=== PATIENT | male | born 1970 | race Caucasian/White ===

== ENCOUNTER 2022-08-23 10:51 | Outpatient (AMB) | payer MEDICAID, SELFPAY ==
--- NOTE | 2022-08-23 11:00 | MHC.PC.OV ---
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 Transferring care from unknown. Medical records have not been requested and have not received. 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 1. Little interest or pleasure in doing things: not at all 2. Feeling down, depressed, or hopeless: not at all 3. Trouble falling or staying asleep, or sleeping too much: not at all 4. Feeling tired or having little energy: not at all 5. Poor appetite or overeating: not at all 6. Feeling bad about yourself - or that you are a failure or have let yourself or your family down: not at all 7. Trouble concentrating on things, such as reading the newspaper or watching television: not at all 8. Moving or speaking so slowly that other people could have noticed. Or the opposite - being so fidgety or restless that you have been moving around a lot more than usual: not at all 9. Thoughts that you would be better off or of hurting yourself in some way: not at all Total score: 0 Depression Screening Interpretation: Negative Source: Developed by Drs. Guy Davila, Sonya Ruano, Alvin Srivastava and colleagues, with an educational sabrina from [employer]. Thrive Questionnaire Date Thrive assessed: 08/23/22 I am a: Patient What is your living situation today?: I have a steady place to live Within the past 12 months, did the food you bought not last and you didn't have the money to get more?: Never true Within the past 12 months, did you worry whether your food would run out before you got money to buy more?: Never true Do you have trouble paying for medicines?: No Do you have trouble getting transportation to medical appointments?: No Do you have trouble paying your heating and electricity bill?: No Do you have trouble taking care of your child, family member or friend?: No Do you have trouble with day-to-day activities such as bathing, preparing meals, shopping, managing finances, etc.?: No Are you currently unemployed and looking for a job?: No Are you interested in more education?: No Currently or been in a relationship where the following occur: no concerns reported AUDIT C Alcohol Use Questionnaire (AUDIT-C) 1. How often do you have a drink containing alcohol?: Monthly or less 2. How many drinks containing alcohol do you have on a typical day when you are drinking?: 1 or 2 Total Score: 1 EFRAIN-7 AMB Questionnaire EFRAIN-7 Date EFRAIN - 7 assessed: 08/23/22 Feeling nervous, anxious, or on edge: 0 = Not at all Not being able to stop or control worryin = Not at all Worrying too much about different things: 0 = Not at all Trouble relaxin = Not at all Being so restless that it is hard to sit still: 0 = Not at all Becoming easily annoyed or irritable: 0 = Not at all Feeling afraid as if something awful might happen: 0 = Not at all Total EFRAIN-7 score (0-4 normal; 5-9 mild; 10-14 moderate; 15-21 severe): 0 Source: Developed by Drs. Guy Davila, Sonya Ruano, Alvin Srivastava and colleagues, with an educational sabrina from [employer]. Physical exam (Primary Care) Vital Signs: Last Vital Signs Pulse 68 08/23/22 11:03 BP 122/60 08/23/22 11:03 Pulse Ox 98 08/23/22 11:03 Oxygen Delivery Method Room Air 08/23/22 11:03 BMI result Body Mass Index 26.8 Tobacco/Smoking Status: Tobacco use Status Tobacco use date assessed 08/23/22 08/23/22 11:12 Patient Tobacco Use Status Never used Tobacco 08/23/22 11:12 e-Cigarette/Vaping Use Never Used 08/23/22 11:12 PHQ-9: PHQ-9 Score PHQ-9: Total score 0 08/23/22 11:12 Depression Screening Interpretation: Negative Thrive Assessment: Date of Thrive Assessment Date Thrive assessed 08/23/22 08/23/22 11:12 Currently or been in a relationship where the following occur: no concerns reported Const General: cooperative, healthy appearing and comfortable HENMT Head: Yes normal to inspection and Yes atraumatic Eyes General: appearance normal, both eyes and all related structures Neck Neck: Yes normal visual inspection and Yes full ROM Chest Chest palpation & inspection: normal inspection of the chest Resp Effort & Inspection: normal respiratory effort Auscultation: clear to auscultation bilaterally Cardio Jugular venous distension: no JVD Palpation: normal PMI Rate: regular rate Heart sounds: S1 normal heart sound present and S2 normal heart sound present GI Palpation (GI): Soft to palpation and No hepatosplenomegaly present Extrem General: Yes normal to inspection and Yes full ROM Assessment and Plan Assessment & Plan (1) Annual physical exam: Code(s): Z00.00 - Encounter for general adult medical examination without abnormal findings Plan: Blood work ordered. Will call with results. Coding Level of Care Code New Pt Prev Care 40-64y(93706) Diagnoses Annual physical exam Z00.00
[2022-08-23 11:03] VITALS: BP 122/60; PULSE 68; O2SAT 98; BMI 26.8
== END 2022-08-23 11:30 | disposition home or self-care (01) ==
PROVIDERS: Visit Provider Internal Medicine
DX: Z00.00 Encounter for general adult medical examination without abnormal findings (principal)
CPT/HCPCS: 99386

== ENCOUNTER 2022-09-12 08:46 | Outpatient (REF) | payer OTHER, SELFPAY ==
[2022-09-12 09:44] LABS: Hematocrit 45.4 % (42.0-52.0); Hemoglobin 15.1 g/dl (14.0-18.0); Mean Corpuscular HGB Conc 33.3 g/dl (31.0-36.0); Mean Corpuscular Hemoglobin 28.6 pg (27.0-33.0); Mean Platelet Volume 10.2 fL (9.4-12.4); Platelet Count 234 X10*3/uL (160-400); Red Blood Count 5.28 X10*6/uL (4.60-5.80); White Blood Count 6.7 X10*3/uL (4.8-10.8)
[2022-09-12 09:45] LABS: Appearance Urine Clear; Color Urine Yellow; Glucose Urine UA Negative (Negative); Leukocyte Esterase Urine Negative (Negative); Nitrite Urine Negative (Negative); PH 6.5 (5.0-9.0); Urine Blood Negative (Negative); Urine Ketones Negative (Negative); Urine Protein Negative (Neg-Trace)
[2022-09-12 10:25] LABS: Alanine Aminotransferase 63 U/L (0-40); Albumin Level 4.6 g/dL (3.5-5.0); Alkaline Phosphatase 72 U/L (39-117); Anion Gap 11 (12-20); Aspartate Amino Transferase 32 U/L (5-37); Bilirubin Direct 0.2 mg/dL (0.0-0.5); Bilirubin Total 0.6 mg/dL (0.0-1.0); Blood Urea Nitrogen 9 mg/dL (9-16); Calcium 9.9 mg/dL (8.4-10.2); Carbon Dioxide 30 mmol/L (22-29); Chloride 103 mmol/L (96-108); Cholesterol 168 mg/dL; Estimated Glomerular Filt Rate > 60; Glucose Random 93 mg/dL (60-115); HDL Cholesterol 51 mg/dL; LDL Cholesterol Calculated 88 mg/dl; Potassium 4.2 mmol/L (3.3-5.1); Sodium 140 mmol/L (135-145); Total Protein 7.4 g/dL (6.5-8.0); Triglycerides 148 mg/dL
[2022-09-12 10:41] LABS: Thyroid Stimulating Hormone 0.46 uIU/mL (0.32-4.0)
== END 2022-09-12 08:47 | disposition home or self-care (01) ==
LOC: HO.LAB 08:46
PROVIDERS: PCP Internal Medicine; Visit Provider Internal Medicine
DX: E78.00 Pure hypercholesterolemia, unspecified (principal)
CPT/HCPCS: 36415; 80048; 80061; 80076; 81003; 84443; 85027

== ENCOUNTER 2022-11-05 15:02 | Outpatient (AMB) | payer OTHER, SELFPAY ==
[2022-11-05 15:07] VITALS: BP 146/83; PULSE 70; BMI 27.7
--- NOTE | 2022-11-05 15:07 | MHC.OFFVIS ---
Intake Vital Signs 11/05/22 15:07 Height 5 ft 9 in Weight 187 lb 13.341 oz BMI 27.7 BP 146/83 H Blood Pressure Location Lt brachial Position Sitting Pulse 70 Pulse Source Pulse Oximeter Intake Visit Reasons: Colonoscopy consult Intake Note: Pt presents to the office today for a colonoscopy consult. Pt states he is feeling well. Pt denies any N/V/D at this time. Allergies No Known Allergies Allergy (Verified 11/05/22 15:13) HPI Colonoscopy consult HPI Details 52 year old? male here today for pre colonoscopy screening.? Patient was sent to us by his PCP.? This is his first colonoscopy screening.? Patient denies any gastrointestinal symptoms in the past or at present.? Patient reports his father of colorectal cancer 2 years ago.? Patient's older brother and sister had colonoscopies within a past year and they had no polyps. Denies history of difficulty with sedation or anesthesia in the past.? Negative for history of sleep apnea.? Denies any history of cardiac, renal, pulmonary, or hepatic disease.?? No history of infectious? diseases like hepatitis A, B, C, HIV or tuberculosis.? Patient is not on any anticoagulation therapy. [facility] Social History Housing: House Alcohol intake: current Alcohol intake frequency: a few times a month Patient Tobacco Use Status: Never used Tobacco e-Cigarette/Vaping Use: Never Used Second Hand Smoke Exposure: No service: No Current occupational status: employed Current occupation: [employer] Cognitive needs: No Hearing needs: No Vision needs: Yes (reading glasses) Review of Systems Const Denies weight gain and Denies weight loss ENT Reports no additional complaints, Denies dysphagia and Denies odynophagia Card Reports no additional complaints Resp Reports no additional complaints GI Denies abdominal pain, Denies belching, Denies melena, Denies bloating, Denies change in bowel habits, Denies dysphagia, Denies excessive flatus, Denies dyspepsia, Denies heartburn, Denies diarrhea, Denies loose stools, Denies nausea, Denies odynophagia and Denies vomiting Reports no additional complaints Musc Reports no additional complaints Neuro Reports no additional complaints Psych Reports no additional complaints Endo Reports no additional complaints Physical Exam Vital Signs: Last Vital Signs Pulse 70 11/05/22 15:07 BP 146/83 H 11/05/22 15:07 BMI result Body Mass Index 27.7 Const General: healthy appearing, no acute distress and well developed Nutritional Appearance: well nourished Orientation/consciousness: patient oriented x3 HEENT Head: Yes normal to inspection, Yes normocephalic and Yes atraumatic Face and sinus: Yes normal facial exam Mouth: Normal oral and palatal mucosa present Throat: Yes posterior oropharynx normal, Yes tonsils normal and Yes uvula midline Eyes General: appearance normal, both eyes and all related structures Neck Neck: Yes normal visual inspection, Yes full ROM and Yes trachea midline Thyroid: Thyroid normal Resp Effort & Inspection: normal respiratory effort, able to speak in complete sentences, no tracheal deviation and symmetric chest movement Auscultation: clear to auscultation bilaterally Cardio Rate: regular rate Heart sounds: S1 normal heart sound present and S2 normal heart sound present GI Inspection: Yes normal to inspection and No distended Palpation (GI): Soft to palpation, not firm, nontender and No hepatosplenomegaly present Auscultation: normal bowel sounds General: Yes no CVA tenderness Back/Spine/Pelvis Back: no CVA tenderness Skin General skin exam: elasticity normal, turgor normal and dry skin Neuro General: patient oriented x3 Psych Appearance: grossly normal Mental Status: mental status grossly normal Speech and movement: Normal speech and movement present Affect: normal affect Assessment & Plan Assessment & Plan (1) Screening for colon cancer: Code(s): Z12.11 - Encounter for screening for malignant neoplasm of colon Plan: Patient denies any GI, cardiac or respiratory symptoms.? Denies any issues with anesthesia in the past.? Denies any history of sleep apnea.? No history infectious diseases in the past or present.? Not on any anticoagulation therapy.? Patient's father had colorectal cancer 2 years ago.? Patient denies melena, hematochezia, unintentional weight loss or ribbon like stools.? Discussed at length the pre-procedure,? prep, diet & medications as well as what to expect prior, during and after the procedure.?? Stressed the importance of good bowel prep. ?Recommended the use of Vaseline or Calmoseptine OTC & baby wipes with bowel movements to promote comfort.? ?Patient verbalizes understanding and agrees to plan of care.? He was given the opportunity to ask questions and all questions answered.? We will see him after the procedure.? Medications: New polyethylene glycol 3350 (Miralax) As directed by gastroenterology department at [facility] 238 grams PO ONCE 238 grams 0RF Z12.11 - Encounter for screening for malignant neoplasm of colon bisacodyl (Dulcolax (bisacodyl)) take 2 tabs at noon the day before your colonoscopy 10 mg (2 x 5 mg) PO ONCE 1 day 2 tabs 0RF Z12.11 - Encounter for screening for malignant neoplasm of colon Coding Level of Care Code New Pt Level 3 (56154) Diagnoses Screening for colon cancer Z12.11 Time Spent (min) 40 Comment 30 minutes spent with patient and additional 10 minutes spent reviewing his records
== END 2022-11-05 16:18 | disposition home or self-care (01) ==
PROVIDERS: PCP Internal Medicine; Visit Provider Nurse Practitioner Family
DX: Z12.11 Encounter for screening for malignant neoplasm of colon (principal); Z01.818 Encounter for other preprocedural examination
CPT/HCPCS: 99203

== ENCOUNTER → 2022-11-05 15:02 | Outpatient (BNVA) | payer OTHER, SELFPAY | PROVIDERS: PCP Internal Medicine; Visit Provider Nurse Practitioner Family ==

== ENCOUNTER 2023-04-09 06:50 | Day surgery (SDC) | payer OTHER, SELFPAY ==
[2023-04-05 13:58] VITALS: BMI 27.6
[2023-04-09 07:19] VITALS: BMI 27.1
[2023-04-09 07:34] VITALS: BP 155/87; PULSE 68; RESP 16; TEMP 36.4; O2SAT 96
[2023-04-09] MEDS: Lactated Ringers 1,000 ML 100 ML IVCONT (07:42)
--- NOTE | 2023-04-09 08:11 | MHC.SHP ---
Pre-Procedural Eval Section A - 24 Hr Update-Section A only Date of Service: 04/09/23 Section B - Complete if H&P > 30 days Chief Complaint: screening Details of Present Illness: dad had CRC Relevant Family History (Specify if Yes): Yes Relevant Social History: None Present Medications: see Short Stay Collaborative assessment Medical History: No relevant PMH History of Previous Operations: No relevant previous surgery Allergies: Allergies Allergy/AdvReac Type Severity Reaction Status Date / Time No Known Allergies Allergy Verified 11/05/22 15:13 Review of Systems Sugical H&P ROS: Negative: Constitution, Cardiovascular, Respiratory, Neurological, Psychiatric, Hem-Onc, Allergic/Immunologic, Gastrointestinal, Genitourinary, Musculoskeletal, Integumentary, Endocrine and Eyes/Ears/Nose/Throat Exam Surgical H&P Exam: Normal: HEENT, Normal: Heart, Normal: Lungs, Normal: Extremities, Normal: Abdomen, Normal: Skin and Normal: Neurological Plan Diagnosis/Plan: Unchanged I have reviewed the history and physical and performed a pertinent physical examination on my patient. No changes have occurred unless specified. Time Spent With Patient Time: Total time managing care of this patient today ____ minutes.
--- NOTE | 2023-04-09 08:12 | W.PM.OPN ---
Operative Note Operative Note Date of Service: 04/09/23 Narrative: Operative Information Procedure Description: Colonoscopy Indication: screening Anesthesia: MAC COLONOSCOPY Instrument: Olympus variable stiffness pediatric scope 190L Colonoscopy Monitoring: Vital signs and clinical assessment, continuous EKG monitoring, Pulse oximetry, Carbon Dioxide monitoring and blood pressure monitoring were done throughout the procedure. Colon withdrawal time was 6 minutes. Procedure: The patient was placed in the left lateral decubitis position and pre-procedure medications were administered. After a digital rectal examination of the ano-rectum, the video colonoscope was inserted into the rectum and advanced through the colon to the cecum/TI. The colonoscope was slowly withdrawn in a retrograde panoramic fashion and the colon mucosa was carefully examined including a retroflexed view of the rectum. Findings and interventions are described below. Procedure Difficulty: easy Findings: Terminal Ileum-normal Cecum: 4-6 mm sessile polyp removed with cold forceps Ascending Colon: normal Transverse Colon -normal Descending Colon:normal Sigmoid Colon: normal Rectum: Retroflexion with small to medium sized internal hemorrhoids, grade I Anorectum - normal Colon preparation: Niles Bowel Preparation Scale Right colon; 2 Transverse colon: 3 Left colon; 3 (0 = Unprepared colon segment with mucosa not seen due to solid stool that cannot be cleared. 1 = Portion of mucosa of the colon segment seen, but other areas of the colon segment not well seen due to staining, residual stool and/or opaque liquid. 2 = Minor amount of residual staining, small fragments of stool and/or opaque liquid, but mucosa of colon segment seen well. 3 = Entire mucosa of colon segment seen well with no residual staining, small fragments of stool or opaque liquid) Impression and Post Procedure Diagnosis: polyp internal hemorrhoids Plan: High fiber diet leaflet Avoid straining at stool, epsom salts and sitz bath, anusol supps or cream Repeat Colonoscopy in 5 years due to polyp or earlier if clinically indicated Above findings were reviewed with the patient and relevant handouts were provided if indicated.
--- NOTE | 2023-04-09 08:15 | HO.ANESPROP2 ---
HPI - Anesthesia Eval Consult details Narrative: 53 yo male patient for Colonoscopy PMFSH Active Problems Active Problems: All Active Problems Screening for colon cancer (Acute) Annual physical exam (Acute) Family History Family history of problems with anesthesia: No Surgical History Surgical History No pertinent past surgical history History of Problems with Anesthesia: No Social History Social History Housing: House Alcohol intake: current Alcohol intake frequency: a few times a month Patient Tobacco Use Status: Never used Tobacco e-Cigarette/Vaping Use: Never Used Second Hand Smoke Exposure: No Use of substances other than those prescribed or required for medical reasons: No Are you DNR?: No Advance Directives: No Advance Directives Information Provided: Yes service: No Current occupational status: employed Current occupation: [employer] Cognitive needs: No Hearing needs: No Vision needs: Yes (reading glasses) Meds Allergies Allergy/AdvReac Type Severity Reaction Status Date / Time No Known Allergies Allergy Verified 11/05/22 15:13 Active Medications: Current Medications Lactated Ringer's (Lr) 1,000 mls @ 100 mls/hr IVCONT .Q10H FABRICIO Exam Height,Weight and Vital Signs: Height 5 ft 9 in Weight 83.234 kg Last Vital Signs Temp 97.6 F 04/09/23 07:34 Pulse 68 04/09/23 07:34 Resp 16 04/09/23 07:34 BP 155/87 H 04/09/23 07:34 Pulse Ox 96 04/09/23 07:34 O2 Del Method Room Air 04/09/23 07:34 Airway Mallampati Class: II TM Dist: >3cm Neck ROM: Full Loose/Missing/Broken Teeth: No (Denies broken, loose, missing teeth) Heart: RRR Lungs: CTAB Assessment and Plan Assessment Anesthesia Assessment: Anesthesia Plan Discussed and Chart Reviewed Final Anesthetic Review Family History of Problems with Anesthesia: No History of Problems with Anesthesia: No NPO: Yes ASA Class: I Final Preanesthetic Review: No Changes in Pt Med Stat, Meds/Allgs Chart Reviewed, Consent Obtained/Reviewed and Anes Risks/Benef Reviewed Patient Risk: Low Procedure Risk: Low Assessment/Block/Sedation in SS: Assess/Block/Sedation-SS Anesthetic Plan Anesthetic Plan: TIVA Disposition: Standard PACU
[2023-04-09 08:46] VITALS: BP 112/56; PULSE 73; RESP 16; TEMP 36.2; O2SAT 94
[2023-04-09 09:01] VITALS: BP 133/84; PULSE 64; RESP 16; TEMP 36.2; O2SAT 96
== END 2023-04-09 09:20 | disposition home or self-care (01) ==
PROVIDERS: PCP Internal Medicine; Visit Provider Internal Medicine Gastroenterology
PROC: 0DJD8ZZ Inspection of Lower Intestinal Tract, Via Natural or Artificial Opening Endoscopic (ICD-10-PCS; CPT 45378; principal; 2023-04-09 08:20)
DX: Z12.11 Encounter for screening for malignant neoplasm of colon (principal); K63.5 Polyp of colon; K64.0 First degree hemorrhoids
CPT/HCPCS: 45380; 88305; J2704

== ENCOUNTER → 2023-04-09 06:50 | Outpatient (BNV) | payer OTHER, SELFPAY | PROVIDERS: PCP Internal Medicine; Visit Provider Internal Medicine Gastroenterology | DX: Z12.11 Encounter for screening for malignant neoplasm of colon (principal); K63.5 Polyp of colon; K64.0 First degree hemorrhoids | CPT/HCPCS: 45380 ==

== ENCOUNTER 2023-04-23 16:18 | Outpatient (AMB) | payer OTHER, SELFPAY ==
[2023-04-23 16:22] VITALS: BP 155/89; PULSE 70; BMI 27.0
--- NOTE | 2023-04-23 16:22 | MHC.OFFVIS ---
Intake Vital Signs 04/23/23 16:22 Height 5 ft 9 in Weight 182 lb 15.739 oz BMI 27.0 BP 155/89 H Blood Pressure Location Lt brachial Position Sitting Pulse 70 Intake Visit Reasons: S/p colon Intake Note: Patient presents to in office visit today in follow up of colonoscopy 04/19/23. CC: Patient reports mild bleeding s/p colonoscopy. Denies other GI symptoms today. Allergies No Known Allergies Allergy (Verified 04/23/23 16:24) HPI S/p colon HPI Details LAST VISIT: Screening for colon cancer Patient denies any GI, cardiac or respiratory symptoms.? Denies any issues with anesthesia in the past.? Denies any history of sleep apnea.? No history infectious diseases in the past or present.? Not on any anticoagulation therapy.? Patient's father had colorectal cancer 2 years ago.? Patient denies melena, hematochezia, unintentional weight loss or ribbon like stools.? Discussed at length the pre-procedure,? prep, diet & medications as well as what to expect prior, during and after the procedure.?? Stressed the importance of good bowel prep. ?Recommended the use of Vaseline or Calmoseptine OTC & baby wipes with bowel movements to promote comfort.? ?Patient verbalizes understanding and agrees to plan of care.? He was given the opportunity to ask questions and all questions answered.? We will see him after the procedure.? Plan Medications New polyethylene glycol 3350 (Miralax) As directed by gastroenterology department at [facility] 238 grams PO ONCE 238 grams 0RF Z12.11 bisacodyl (Dulcolax (bisacodyl)) take 2 tabs at noon the day before your colonoscopy 10 mg (2 x 5 mg) PO ONCE 1 day 2 tabs 0RF Z12.11 COLONOSCOPY Findings: Terminal Ileum-normal Cecum: 4-6 mm sessile polyp removed with cold forceps Ascending Colon: normal Transverse Colon -normal Descending Colon:normal Sigmoid Colon: normal Rectum: Retroflexion with small to medium sized internal hemorrhoids, grade I Anorectum - normal Colon preparation: [place] Bowel Preparation Scale Right colon; 2 Transverse colon: 3 Left colon; 3 (0 = Unprepared colon segment with mucosa not seen due to solid stool that cannot be cleared. 1 = Portion of mucosa of the colon segment seen, but other areas of the colon segment not well seen due to staining, residual stool and/or opaque liquid. 2 = Minor amount of residual staining, small fragments of stool and/or opaque liquid, but mucosa of colon segment seen well. 3 = Entire mucosa of colon segment seen well with no residual staining, small fragments of stool or opaque liquid) Impression and Post Procedure Diagnosis: polyp internal hemorrhoids Plan: High fiber diet leaflet Avoid straining at stool, epsom salts and sitz bath, anusol supps or cream Repeat Colonoscopy in 5 years due to polyp or earlier if clinically indicated PATHOLOGY RESULTS Diagnosis Colon, cecal polyp: Colonic mucosa with focal minimal hyperplastic changes; no adenomatous dysplasia seen. TODAY'S VISIT Patient is here today for follow-up and to discuss colonoscopy results. Patient denies any ill effects from the prep, anesthesia or procedure itself. Patient reports that he has been feeling well. Patient reports that he is moving his bowels well, however sometimes feels like he might be constipated. Patient does not feel like he has any trouble with hemorrhoids, however when he is constipated he my see blood after bowel movement when wiping. Diagnosed with internal hemorrhoids, 1 hyperplastic polyp removed. Due to family history of colorectal cancer patient will return for colorectal screening in 5 years. Patient denies melena, hematochezia, unintentional weight loss or ribbon like stools. Patient denies any dyspepsia, dysphagia or odynophagia [facility] Medical History (Updated 04/25/23 @ 11:38 by LYNDSEY Smith) Family history of colorectal cancer Surgical History (Updated 04/25/23 @ 11:38 by LYNDSEY Smith) H/O colonoscopy Social History Housing: House Alcohol intake: current Alcohol intake frequency: a few times a month Patient Tobacco Use Status: Never used Tobacco e-Cigarette/Vaping Use: Never Used Second Hand Smoke Exposure: No service: No Current occupational status: employed Current occupation: [employer] Cognitive needs: No Hearing needs: No Vision needs: Yes (reading glasses) Review of Systems Const Denies weight gain and Denies weight loss ENT Reports no additional complaints, Denies dysphagia and Denies odynophagia Card Reports no additional complaints Resp Reports no additional complaints GI Denies abdominal pain, Denies belching, Denies melena, Denies bloating, Denies change in bowel habits, Denies dysphagia, Denies excessive flatus, Denies dyspepsia, Denies heartburn, Denies diarrhea, Denies loose stools, Denies nausea, Denies odynophagia and Denies vomiting Reports no additional complaints Musc Reports no additional complaints Neuro Reports no additional complaints Psych Reports no additional complaints Endo Reports no additional complaints Physical Exam Vital Signs: Last Vital Signs Pulse 70 04/23/23 16:22 BP 155/89 H 04/23/23 16:22 BMI result Body Mass Index 27.0 Const General: healthy appearing, no acute distress and well developed Nutritional Appearance: well nourished Orientation/consciousness: patient oriented x3 Resp Effort & Inspection: normal respiratory effort, able to speak in complete sentences, no tracheal deviation and symmetric chest movement Auscultation: clear to auscultation bilaterally Cardio Rate: regular rate GI Inspection: Yes normal to inspection and No distended Palpation (GI): Soft to palpation, not firm, nontender and No hepatosplenomegaly present Auscultation: normal bowel sounds General: Yes no CVA tenderness Back/Spine/Pelvis Back: no CVA tenderness Skin General skin exam: elasticity normal, turgor normal and dry skin Neuro General: patient oriented x3 Psych Appearance: grossly normal Mental Status: mental status grossly normal Assessment & Plan Assessment & Plan (1) Family history of colorectal cancer: Code(s): Z80.0 - Family history of malignant neoplasm of digestive organs (2) Status post colonoscopy: Code(s): Z98.890 - Other specified postprocedural states Plan Due to family history patient will return for colorectal screening in 5 years. One hyperplastic polyp found. He will follow-up in our office on as-needed basis. Script for Colace and Proctosol send. Patient will call the office if he will have any GI concerning symptoms. He is agreeable to this plan and verbalizes understanding of instructions. He was given the opportunity to ask questions and all questions answered. Thank you for allowing me to participate in his care Medications: New docusate sodium 100 mg PO BEDTIME 90 caps 3RF K59.00 - Constipation, unspecified hydrocortisone 2.5% (Proctosol HC) 1 appl [place] BID-QID PRN 30 grams 2RF hemorrhoids K64.9 - Unspecified hemorrhoids Coding Level of Care Code Est Pt Level 3 (57227) Diagnoses Family history of colorectal cancer Z80.0 Status post colonoscopy Z98.890 Time Spent (min) 25 Comment 15 minutes spent with patient and additional 10 minutes spent reviewing his records
== END 2023-04-23 16:41 | disposition home or self-care (01) ==
PROVIDERS: PCP Internal Medicine; Visit Provider Nurse Practitioner Family
DX: Z80.0 Family history of malignant neoplasm of digestive organs (principal); Z98.890 Other specified postprocedural states
CPT/HCPCS: 99213

== ENCOUNTER → 2023-04-23 16:18 | Outpatient (BNVA) | payer OTHER, SELFPAY | PROVIDERS: PCP Internal Medicine; Visit Provider Nurse Practitioner Family ==

== ENCOUNTER 2023-06-06 10:51 | Emergency (ER) | payer OTHER, SELFPAY ==
[2023-06-06 11:11] VITALS: BP 161/98; PULSE 70; RESP 19; TEMP 36.6; O2SAT 98; BMI 26.6
--- NOTE | 2023-06-06 11:12 | ED.DIZZY ---
HPI - Dizziness General Chief Complaint: Dizziness Stated Complaint: Low BP, dizziness Related Data Previous Rx's ?Medication ?Instructions ?Recorded docusate sodium 100 mg capsule 100 mg PO BEDTIME #90 caps 04/23/23 hydrocortisone 2.5 % topical cream 1 appl [place] BID-QID PRN hemorrhoids 04/23/23 with perineal applicator #30 grams (Proctosol HC) Allergies Allergy/AdvReac Type Severity Reaction Status Date / Time No Known Allergies Allergy Verified 06/06/23 11:13 [facility] Past Medical History Medical History (Updated 06/07/23 @ 11:07 by CARLOS Hinkle) Family history of colorectal cancer Surgical History (Updated 04/25/23 @ 11:38 by Margarita Zapata [employer]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-) H/O colonoscopy Social History Social History Housing: House Alcohol intake: current Alcohol intake frequency: a few times a month Patient Tobacco Use Status: Never used Tobacco e-Cigarette/Vaping Use: Never Used Second Hand Smoke Exposure: No Advance Directives: No Advance Directives Information Provided: No service: No Current occupational status: employed 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 53 yo male without any medical problems presenting for evaluation of dizziness and low blood pressure at work. BP was reportedly in the 80s. He was lightheaded. Symptoms improved now. BP elevated 150-160 systolic in triage. Plan: basic labs and EKG, orthos Reevaluation(s) Reevaluation #1: patient eloped from the ER prior to completing treatmet Medical Decision Making Lab Data 06/06/23 12:06 06/06/23 12:06 Labs: Lab Results 04/11/24 Range/Units 12:06 WBC 6.8 (4.8-10.8) X10*3/uL RBC 5.19 (4.60-5.80) X10*6/uL Hgb 15.0 (14.0-18.0) g/dl Hct 43.1 (42.0-52.0) % MCV 83.0 (80.0-98.0) fL MCH 28.9 (27.0-33.0) pg MCHC 34.8 (31.0-36.0) g/dl RDW 12.2 (11.0-16.0) % Plt Count 241 (160-400) X10*3/uL MPV 9.6 (9.4-12.4) fL Immature Gran % (Auto) 0.3 (0.0-0.4) % Neut % (Auto) 66.0 (45-73) % Lymph % (Auto) 23.7 (20-40) % [place] % (Auto) 7.8 (2-11) % Eos % (Auto) 1.5 (0-4) % Baso % (Auto) 0.7 (0-2) % Lymph # (Auto) 1.6 (1.2-4.9) X10*3/uL [place] # (Auto) 0.5 (0.1-1.2) X10*3/uL Eos # (Auto) 0.1 (0.0-0.4) X10*3/uL Baso # (Auto) 0.1 (0.0-0.2) X10*3/uL Abs Immat Gran (auto) 0.02 (0.00-0.03) X10*3/uL Absolute Neuts (auto) 4.5 (2.0-8.3) x10*3/uL Absolute Nucleated RBC 0.000 (0.0-0.012) X10*3/uL Nucleated RBC % (auto) 0.0 (0.0-0.2) /100WBC Sodium 140 (135-145) mmol/L Potassium 4.4 (3.3-5.1) mmol/L Chloride 103 (96-108) mmol/L Carbon Dioxide 31 H (22-29) mmol/L Anion Gap 10 L (12-20) BUN 10 (9-16) mg/dL Creatinine 0.98 (0.5-1.4) mg/dL Estim Creat Clear Calc 89.1 Estimated GFR > 60 Random Glucose 95 (60-115) mg/dL Calcium 10.0 (8.4-10.2) mg/dL Magnesium 2.3 (1.6-2.6) mg/dL Discharge Plan Discharge Clinical Impression: Dizziness Patient Disposition: Left W/O Completing Treatment Prescriptions: No Action docusate sodium 100 mg capsule 100 mg PO BEDTIME Qty: 90 3RF hydrocortisone [Proctosol HC] 2.5 % cream with perineal applicator 1 appl [place] BID-QID PRN (Reason: hemorrhoids) Qty: 30 2RF Discharge Date/Time: 06/06/23 16:58
--- NOTE | 2023-06-06 11:20 | ECG_ITS ---
Test Reason : dizziness Blood Pressure : / mmHG Vent. Rate : 077 BPM Atrial Rate : 077 BPM P-R Int : 142 ms QRS Dur : 080 ms QT Int : 346 ms P-R-T Axes : 061 049 034 degrees QTc Int : 391 ms Normal sinus rhythm Normal ECG No previous ECGs available Referred By: Anne Raymond Electronically Signed By:Ubaldo Koch
[2023-06-06 12:13] LABS: MANUAL DIFF FLAG NO
[2023-06-06 12:19] LABS: Basophils Absolute Auto 0.1 X10*3/uL (0.0-0.2); Basophils Percent Auto 0.7 % (0-2); Eosinophils Absolute Auto 0.1 X10*3/uL (0.0-0.4); Eosinophils Percent Auto 1.5 % (0-4); Hematocrit 43.1 % (42.0-52.0); Imm Gran Abs Auto 0.02 X10*3/uL (0.00-0.03); Imm Gran Pct Auto 0.3 % (0.0-0.4); Lymphocytes Absolute Auto 1.6 X10*3/uL (1.2-4.9); Lymphocytes Percent Auto 23.7 % (20-40); Mean Corpuscular HGB Conc 34.8 g/dl (31.0-36.0); Mean Corpuscular Hemoglobin 28.9 pg (27.0-33.0); Mean Platelet Volume 9.6 fL (9.4-12.4); Monocytes Absolute Auto 0.5 X10*3/uL (0.1-1.2); Monocytes Percent Auto 7.8 % (2-11); Neutrophils Absolute Auto 4.5 x10*3/uL (2.0-8.3); Platelet Count 241 X10*3/uL (160-400); Red Blood Count 5.19 X10*6/uL (4.60-5.80); Red Cell Distribution Width 12.2 % (11.0-16.0); White Blood Count 6.8 X10*3/uL (4.8-10.8)
[2023-06-06 12:34] LABS: Anion Gap 10 (12-20); Blood Urea Nitrogen 10 mg/dL (9-16); Carbon Dioxide 31 mmol/L (22-29); Chloride 103 mmol/L (96-108); Creatinine Clr Calc Pharmacy 89.1; Estimated Glomerular Filt Rate > 60; Glucose Random 95 mg/dL (60-115); Magnesium 2.3 mg/dL (1.6-2.6); Potassium 4.4 mmol/L (3.3-5.1); Sodium 140 mmol/L (135-145)
== END 2023-06-06 16:58 | disposition left against medical advice (07) ==
PROVIDERS: Physician Assistant; Emergency Provider Emergency Medicine
DX: R42 Dizziness and giddiness (principal); I95.9 Hypotension, unspecified; Z79.899 Other long term (current) drug therapy
CPT/HCPCS: 36415; 80048; 83735; 85025; 93005; 99283

== ENCOUNTER → 2023-06-06 11:20 | Outpatient (BNV) | payer OTHER, SELFPAY | PROVIDERS: Emergency Provider Emergency Medicine; Visit Provider Internal Medicine Cardiovascular Disease | DX: R42 Dizziness and giddiness (principal) | CPT/HCPCS: 93010 ==

== ENCOUNTER 2024-01-02 14:56 | Outpatient (AMB) | payer OTHER, SELFPAY ==
[2024-01-02 14:57] VITALS: BP 132/84; PULSE 67; O2SAT 94; BMI 27.3
--- NOTE | 2024-01-02 14:57 | A.OFFPC_ITS ---
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 Required: No Accompanied by: Self / Same As Patient Allergies No Known Allergies Allergy (Verified 01/02/24 14:58) Medication List - Last Reconciled 01/02/24 by Osiel Ward MD hydrocortisone 2.5% (Proctosol HC) 1 appl [place] BID-QID PRN Tobacco use date assessed: 01/02/24 Dental Screening Dental Screen Date: 01/02/24 Did you have a dental visit in the last 12 months?: No Did you have a dental problem in the last 6 months where you did not have access to dental care?: No Was dental information given to patient?: Patient has dentist HPI PE HPI Details 53-year-old overweight male 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 Review of the notes ER visit 06/15/2023 for dizziness left without completing treatment.. Colonoscopy done under gastro followed up in March noted a polyp and internal hemorrhoid hyperplastic due to the family history advised to repeat in 5 years. [facility] Medical History (Updated 01/02/24 @ 15:25 by Osiel Ward MD) Screening for colon cancer Family history of colorectal cancer Surgical History (Updated 04/25/23 @ 11:[address] 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 1. Little interest or pleasure in doing things: not at all 2. Feeling down, depressed, or hopeless: not at all 3. Trouble falling or staying asleep, or sleeping too much: not at all 4. Feeling tired or having little energy: not at all 5. Poor appetite or overeating: not at all 6. Feeling bad about yourself - or that you are a failure or have let yourself or your family down: not at all 7. Trouble concentrating on things, such as reading the newspaper or watching television: not at all 8. Moving or speaking so slowly that other people could have noticed. Or the opposite - being so fidgety or restless that you have been moving around a lot more than usual: not at all 9. Thoughts that you would be better off or of hurting yourself in some way: not at all Total score: 0 Depression Screening Interpretation: Negative Depression Screening Done: Yes Source: Developed by Drs. Guy Davila, Sonya Ruano, Alvin Srivastava and colleagues, with an educational sabrina from [employer]. Thrive Questionnaire Date Thrive assessed: 01/02/24 I am a: Patient What is your living situation today?: I choose not to answer this question Within the past 12 months, did the food you bought not last and you didn't have the money to get more?: I choose not to answer this question Within the past 12 months, did you worry whether your food would run out before you got money to buy more?: I choose not to answer this question Do you have trouble paying for medicines?: No Do you have trouble getting transportation to medical appointments?: No Do you have trouble paying your heating and electricity bill?: No Do you have trouble taking care of your child, family member or friend?: No Do you have trouble with day-to-day activities such as bathing, preparing meals, shopping, managing finances, etc.?: No Are you currently unemployed and looking for a job?: No Are you interested in more education?: No Please select the resources that you would like help with: Paying for medicine Currently or been in a relationship where the following occur: I choose not to answer THRIVE Score: 0 AUDIT C Alcohol Use Questionnaire (AUDIT-C) 1. How often do you have a drink containing alcohol?: 2-3 times a week 2. How many drinks containing alcohol do you have on a typical day when you are drinking?: 1 or 2 3. How often do you have six or more drinks on one occasion?: Weekly Total Score: 6 EFRAIN-7 AMB Questionnaire EFRAIN-7 Date EFRAIN - 7 assessed: 01/02/24 Feeling nervous, anxious, or on edge: 0 = Not at all Not being able to stop or control worryin = Not at all Worrying too much about different things: 0 = Not at all Trouble relaxin = Not at all Being so restless that it is hard to sit still: 0 = Not at all Becoming easily annoyed or irritable: 0 = Not at all Feeling afraid as if something awful might happen: 0 = Not at all Total EFRAIN-7 score (0-4 normal; 5-9 mild; 10-14 moderate; 15-21 severe): 0 Source: Developed by Drs. Guy Davila, Sonya Ruano, Alvin Srivastava and colleagues, with an educational sabrina from [employer]. Review of Systems Const Denies poor appetite and Denies weakness Eyes Denies no additional complaints ENT Reports Normal hearing present, Denies dizziness, Denies nasal congestion, Denies tinnitus and Denies sore throat Card Denies chest pain, Denies syncope, Denies rapid heart rate and Denies dyspnea Resp Denies cough and Denies dyspnea GI Denies change in stool character, Reports constipation, Denies diarrhea, Denies nausea and Denies vomiting Denies dysuria and Denies urinary frequency Neuro Reports Normal hearing present, Denies confusion, Denies dizziness, Denies syncope and Denies weakness Psych Denies confusion Physical exam (Primary Care) Vital Signs: Last Vital Signs Pulse 67 01/02/24 14:57 BP 132/84 01/02/24 14:57 Pulse Ox 94 01/02/24 14:57 Oxygen Delivery Method Room Air 01/02/24 14:57 BMI result Body Mass Index 27.3 Tobacco/Smoking Status: Tobacco use Status Tobacco use date assessed 01/02/24 01/02/24 15:03 Patient Tobacco Use Status Never used Tobacco 01/02/24 15:13 Tobacco use type Cigarette 01/02/24 15:13 e-Cigarette/Vaping Use Never Used 01/02/24 15:13 PHQ-9: PHQ-9 Score PHQ-9: Total score 0 01/02/24 15:07 Depression Screening Interpretation: Negative Thrive Assessment: Date of Thrive Assessment Date Thrive assessed 01/02/24 01/02/24 15:03 Currently or been in a relationship where the following occur: I choose not to answer Const General: No confusion Orientation/consciousness: No confusion HENMT Head: Yes normocephalic Ears: external ears normal and TM's normal bilaterally Face and sinus: Yes normal facial exam Mouth: moist mucous membranes Throat: Yes tonsils normal Eyes Conjunctivae: conjunctivae normal Pupils: Equal, round and reactive pupils present and Pupil accommodation reflex normal Direct Ophthalmoscopy: normal light reflex Neck Neck: No lymphadenopathy Thyroid: Thyroid normal Chest Chest palpation & inspection: normal inspection of the chest Resp Effort & Inspection: normal respiratory effort and no audible wheezes Auscultation: clear to auscultation bilaterally, no crackles, no wheezes and lung sounds not diminished Cardio Rate: regular rate Rhythm: regular rhythm Peripheral pulses: radial pulses present and dorsalis pedis present GI Palpation (GI): no masses Auscultation: normal bowel sounds and normoactive bowel sounds Rectal Exam - Male: Yes deferred Skin General skin exam: no rashes or lesions noted Rashes: no rashes Neuro General: No confusion Cranial nerves: Yes Equal, round and reactive pupils present and Yes Normal hearing present Cognition (Neuro): normal cognition Gait exam (Neuro): Normal gait present Motor exam (neuro): 5/5 motor strength present throughout Deep tendon reflexes (DTR's): Right brachioradialis reflex intensity grade: 2+, Left brachioradialis reflex intensity grade: 2+, Right patellar reflex intensity grade: 2+ and Left patellar reflex intensity grade: 2+ Extrem General: No edema Coding Level of Care Code Est Pt Prev Care 40-64y(20032) Diagnoses Annual physical exam Z00.00 Family history of colorectal cancer Z80.0 LFT elevation R79.89 Overweight (BMI 25.0-29.9) E66.3 Impacted cerumen of both ears H61.23 Assessment & Plan Assessment & Plan (1) Annual physical exam: Code(s): Z00.00 - Encounter for general adult medical examination without abnormal findings Category: Medical Plan: Patient is advised to eat healthy, keep well hydrated, keep active and have adequate sleep. (2) Family history of colorectal cancer: Comment: Colonoscopy March 2023 Code(s): Z80.0 - Family history of malignant neoplasm of digestive organs Category: Medical Plan: Repeat colonoscopy in 5 years 2028 (3) LFT elevation: Code(s): R79.89 - Other specified abnormal findings of blood chemistry Category: Medical Plan: Advised to get an ultrasound of the liver as well as a repeat blood test. (4) Overweight (BMI 25.0-29.9): Code(s): E66.3 - Overweight Category: Medical Plan: Diet and exercise (5) Impacted cerumen of both ears: Code(s): H61.23 - Impacted cerumen, bilateral Category: Medical Plan: Discussed about the need to irrigate. Needs schedule Orders: Orders Hepatitis B,C Profile Today R7. - Other specified abnormal findings of blood chemistry US abdomen complete Today R7.89 - Other specified abnormal findings of blood chemistry Liver Panel Today R7. - Other specified abnormal findings of blood chemistry
== END 2024-01-02 15:32 | disposition home or self-care (01) ==
LOC: HO.HMCH 14:57
PROVIDERS: Visit Provider Internal Medicine
DX: Z00.00 Encounter for general adult medical examination without abnormal findings (principal); Z80.0 Family history of malignant neoplasm of digestive organs; R79.89 Other specified abnormal findings of blood chemistry; E66.3 Overweight; H61.23 Impacted cerumen, bilateral

== ENCOUNTER 2024-01-07 14:49 | Outpatient (AMB) | payer OTHER, SELFPAY ==
[2024-01-07 14:50] VITALS: BP 134/68; PULSE 84; O2SAT 97; BMI 27.6
--- NOTE | 2024-01-07 14:50 | A.OFFPC_ITS ---
Vital Signs 01/07/24 14:50 Height 5 ft 9 in Weight 187 lb BMI 27.6 BP 134/68 Blood Pressure Location Lt brachial Position Sitting Pulse 84 Pulse Source Pulse Oximeter Pulse Oximetry (%) 97 Oxygen Delivery Method Room Air Intake Visit Reasons: Ear cleaning Drug Counselor Required: No Allergies No Known Allergies Allergy (Verified 01/07/24 14:50) Tobacco use date assessed: 01/02/24 Dental Screening Dental Screen Date: 01/02/24 HPI Ear cleaning HPI Details 53-year-old male presenting to the hospital for special surgery for ear cleaning. 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 He is having decreased hearing and was told he had excessive wax. [facility] Medical History (Updated 01/02/24 @ 15:25 by Osiel Ward MD) Screening for colon cancer Family history of colorectal cancer Surgical History (Updated 04/25/23 @ 11:38 by Margarita Zapata [facility]) H/O colonoscopy Family History (Updated 01/02/24 @ 15:11 by Osiel Ward MD) Father Colon cancer Social History (Updated 01/02/24 @ 15:13 by Osiel Ward MD) Housing: House Alcohol intake: current Alcohol intake frequency: a few times a month Comment: twice a week 2-3 truly Patient Tobacco Use Status: Never used Tobacco Tobacco use type: Cigarette Years Smoked: marijuana e-Cigarette/Vaping Use: Never Used Second Hand Smoke Exposure: No service: No Current occupational status: employed 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 How often do you have a drink containing alcohol?: 2-3 times a week 2. How many drinks containing alcohol do you have on a typical day when you are drinking?: 1 or 2 3. How often do you have six or more drinks on one occasion?: Weekly Total Score: 6 EFRAIN-7 AMB Questionnaire EFRAIN-7 Date EFRAIN - 7 assessed: 01/02/24 Source: Developed by Drs. Guy Davila, Sonya Ruano, Alvin Srivastava and colleagues, with an educational sabrina from [employer]. Review of Systems ENT Details: Ear clogged feeling decreased hearing Denies Normal hearing present and Denies tinnitus Neuro Denies Normal hearing present Physical exam (Primary Care) Vital Signs: Last Vital Signs Pulse 84 01/07/24 14:50 BP 134/68 01/07/24 14:50 Pulse Ox 97 01/07/24 14:50 Oxygen Delivery Method Room Air 01/07/24 14:50 BMI result Body Mass Index 27.6 Tobacco/Smoking Status: Tobacco use Status Tobacco use date assessed 01/02/24 01/07/24 14:51 Patient Tobacco Use Status Never used Tobacco 01/07/24 14:51 Tobacco use type Cigarette 01/07/24 14:51 e-Cigarette/Vaping Use Never Used 01/07/24 14:51 Thrive Assessment: Date of Thrive Assessment Date Thrive assessed 01/02/24 01/07/24 14:51 Const General: cooperative, healthy appearing, comfortable and no acute distress Orientation/consciousness: patient oriented x3 HENMT Head: Yes normocephalic Ears: hearing grossly normal bilaterally and Abnormal EAC present cerumen impaction bilateral General nose exam: Normal external nose present Eyes General: appearance normal, both eyes and all related structures Conjunctivae: conjunctivae normal Resp Effort & Inspection: normal respiratory effort Neuro General: patient oriented x3 Cranial nerves: No Normal hearing present Gait exam (Neuro): Normal gait present Extrem General: Yes normal to inspection, Yes full ROM and No edema Psych Affect: normal affect Attitude: cooperative Insight: Good insight present (Psych) Judgement: Good judgement present (Psych) Office Procedures Cerumen Removal From which ear canal was the cerumen removed: bilateral Removal: irrigation and cerumen loop/spoon Notes: patient tolerated procedure well, no complications and ear canal clear [id number] Irrigation/Lavage Coding Level of Care Code Est Pt Level 3 (43189) Diagnoses Impacted cerumen of both ears H61.23 CPT Codes Office Procedure - CPT: 78719-Yfb Irrigation/Lavage ([id number]) Assessment & Plan Assessment & Plan (1) Impacted cerumen of both ears: Code(s): H61.23 - Impacted cerumen, bilateral Category: Medical Plan: Cerumen was successfully removed using irrigation and lighted curette. Patient tolerated procedure well. TMs were visualized as intact with well aerated middle ear spaces and ear canals were clear. Follow up as needed for this concern. Plan This note was constructed using voice recognition software. While every effort has been made to ensure accuracy and critical care educator, still areas may have been included sometimes these areas may affect the content or meeting of the given symptoms. Total time spent caring for the patient today was 20 minutes. This includes time spent before the visit reviewing the chart, time spent during the visit, and time spent after the visit and documentation.
== END 2024-01-07 15:37 | disposition home or self-care (01) ==
DX: H61.23 Impacted cerumen, bilateral (principal)

== ENCOUNTER → 2024-01-07 14:49 | Outpatient (BNVA) | payer OTHER, SELFPAY | DX: H61.23 Impacted cerumen, bilateral (principal) | CPT/HCPCS: 69210 ==

== ENCOUNTER 2024-02-03 09:04 | Outpatient (REF) | payer OTHER, SELFPAY | END 2024-02-03 09:05 | disposition home or self-care (01) | LOC: HO.US 09:04 | PROVIDERS: PCP Internal Medicine; Visit Provider Internal Medicine | DX: R79.89 Other specified abnormal findings of blood chemistry (principal) | CPT/HCPCS: 76700 ==

== ENCOUNTER 2024-04-06 16:53 | Outpatient (AMB) | payer OTHER, SELFPAY ==
--- NOTE | 2024-04-06 16:54 | MHC.PC.OV ---
Vital Signs 04/06/24 16:57 Height 5 ft 9 in Weight 185 lb BMI 27.3 BP 152/98 H Blood Pressure Location Lt brachial Position Sitting Pulse 68 Pulse Source Pulse Oximeter Pulse Oximetry (%) 98 Oxygen Delivery Method Room Air Intake Visit Reasons: LFt high Quarry Boss Required: No Accompanied by: Self / Same As Patient Allergies No Known Allergies Allergy (Verified 04/06/24 17:01) Tobacco use date assessed: 04/06/24 Dental Screening Dental Screen Date: 04/06/24 Did you have a dental visit in the last 12 months?: Yes Did you have a dental problem in the last 6 months where you did not have access to dental care?: No Was dental information given to patient?: Patient has dentist HPI LFt high HPI Details The patient is a 54-year-old male presenting with a follow-up for hepatic steatosis. During a previous visit, elevated liver enzyme levels were identified with values recorded at 63, where normal levels should be below 32 to 34. This prompted a recommendation for an ultrasound, which was performed in January, confirming the presence of hepatic steatosis. No issues were noted concerning the gallbladder or spleen. The condition is currently benign but has potential for progression to further complications like cirrhosis if not managed appropriately. The patient has acknowledged engaging in regular physical activity, such as attending the gym three times weekly, and stresses having a good appetite and overall health status. There is no recent history of tenderness, swelling in the legs, or unexplained symptoms. 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 1. Little interest or pleasure in doing things: not at all 2. Feeling down, depressed, or hopeless: not at all 3. Trouble falling or staying asleep, or sleeping too much: not at all 4. Feeling tired or having little energy: not at all 5. Poor appetite or overeating: not at all 6. Feeling bad about yourself - or that you are a failure or have let yourself or your family down: not at all 7. Trouble concentrating on things, such as reading the newspaper or watching television: not at all 8. Moving or speaking so slowly that other people could have noticed. Or the opposite - being so fidgety or restless that you have been moving around a lot more than usual: not at all 9. Thoughts that you would be better off or of hurting yourself in some way: not at all Total score: 0 Depression Screening Interpretation: Negative Depression Screening Done: Yes Source: Developed by Drs. Guy Davila, Sonya Ruano, Alvin Srivastava and colleagues, with an educational sabrina from [employer]. Thrive Questionnaire Date Thrive assessed: 04/06/24 I am a: Patient What is your living situation today?: I choose not to answer this question Within the past 12 months, did the food you bought not last and you didn't have the money to get more?: I choose not to answer this question Within the past 12 months, did you worry whether your food would run out before you got money to buy more?: I choose not to answer this question Do you have trouble paying for medicines?: No Do you have trouble getting transportation to medical appointments?: No Do you have trouble paying your heating and electricity bill?: No Do you have trouble taking care of your child, family member or friend?: No Do you have trouble with day-to-day activities such as bathing, preparing meals, shopping, managing finances, etc.?: No Are you currently unemployed and looking for a job?: No Are you interested in more education?: No Please select the resources that you would like help with: Paying for medicine Currently or been in a relationship where the following occur: I choose not to answer THRIVE Score: 0 AUDIT C Alcohol Use Questionnaire (AUDIT-C) 1. How often do you have a drink containing alcohol?: 2-3 times a week 2. How many drinks containing alcohol do you have on a typical day when you are drinking?: 1 or 2 3. How often do you have six or more drinks on one occasion?: Weekly Total Score: 6 EFRAIN-7 AMB Questionnaire EFRAIN-7 Date EFRAIN - 7 assessed: 04/06/24 Feeling nervous, anxious, or on edge: 0 = Not at all Not being able to stop or control worryin = Not at all Worrying too much about different things: 0 = Not at all Trouble relaxin = Not at all Being so restless that it is hard to sit still: 0 = Not at all Becoming easily annoyed or irritable: 0 = Not at all Feeling afraid as if something awful might happen: 0 = Not at all Total EFRAIN-7 score (0-4 normal; 5-9 mild; 10-14 moderate; 15-21 severe): 0 Source: Developed by Drs. Gyu Davila, Sonya Ruano, Alvin Srivastava and colleagues, with an educational sabrina from [employer]. Physical exam (Primary Care) Vital Signs: Last Vital Signs Pulse 68 04/06/24 16:57 BP 152/98 H 04/06/24 16:57 Pulse Ox 98 04/06/24 16:57 Oxygen Delivery Method Room Air 04/06/24 16:57 BMI result Body Mass Index 27.3 Tobacco/Smoking Status: Tobacco use Status Tobacco use date assessed 04/06/24 04/06/24 17:05 Patient Tobacco Use Status Never used Tobacco 04/06/24 17:05 Tobacco use type 04/06/24 17:05 e-Cigarette/Vaping Use Never Used 04/06/24 17:05 PHQ-9: PHQ-9 Score PHQ-9: Total score 0 04/06/24 17:05 Depression Screening Interpretation: Negative Thrive Assessment: Date of Thrive Assessment Date Thrive assessed 04/06/24 04/06/24 17:05 Currently or been in a relationship where the following occur: I choose not to answer Const General: alert; No acute distress Eyes Conjunctivae: conjunctivae normal Resp Auscultation: clear to auscultation bilaterally Cardio Rate: regular rate Rhythm: regular rhythm GI Inspection: Yes normal to inspection Extrem General: Yes normal to inspection and No edema Coding Level of Care Code Est Pt Level 3 (97922) Diagnoses Fatty liver K76.0 Overweight (BMI 25.0-29.9) E66.3 Assessment & Plan Assessment & Plan (1) Fatty liver: Code(s): K76.0 - Fatty (change of) liver, not elsewhere classified Category: Medical Plan: Low-fat diet and exercise (2) Overweight (BMI 25.0-29.9): Code(s): E66.3 - Overweight Category: Medical Plan - Recommend repeating liver function tests to monitor enzyme levels and rule out progression or additional liver pathology such as hepatitis. - Advise continuing lifestyle modifications including maintaining a healthy diet and regular physical exercise to manage fatty liver. - Discuss the importance of vaccine updates, particularly in light of ongoing flu, COVID-19, and RSV outbreaks, and advise on wearing masks in crowded settings for preventive health. - Schedule a follow-up appointment for a comprehensive physical examination and reassessment of the patient's health status. Orders: Orders Complete Blood Count Auto Diff Today K76.0 - Fatty (change of) liver, not elsewhere classified Free T4 (Free Thyroxine) Today K76.0 - Fatty (change of) liver, not elsewhere classified Lipid Panel Today E78.00 - Pure hypercholesterolemia, unspecified, K76.0 - Fatty (change of) liver, not elsewhere classified Prostate Specific Antigen Scr Today K76.0 - Fatty (change of) liver, not elsewhere classified Comprehensive Met. Panel Today K76.0 - Fatty (change of) liver, not elsewhere classified Thyroid Stimulating Hormone Today K76.0 - Fatty (change of) liver, not elsewhere classified Vitamin B12 and Folate Today K76.0 - Fatty (change of) liver, not elsewhere classified
[2024-04-06 16:57] VITALS: BP 152/98; PULSE 68; O2SAT 98; BMI 27.3
== END 2024-04-06 17:18 | disposition home or self-care (01) ==
PROVIDERS: PCP Internal Medicine; Visit Provider Internal Medicine
DX: K76.0 Fatty (change of) liver, not elsewhere classified (principal); E66.3 Overweight

== ENCOUNTER 2025-01-04 17:13 | Outpatient (AMB) | payer OTHER, SELFPAY ==
--- NOTE | 2025-01-04 17:14 | MHC.PC.OV ---
Vital Signs 01/04/25 17:15 Height 5 ft 9 in Weight 189 lb BMI 27.9 BP 132/70 Blood Pressure Location Lt brachial Position Sitting Pulse 69 Pulse Source Pulse Oximeter Pulse Oximetry (%) 97 Oxygen Delivery Method Room Air Intake Visit Reasons: annual exam Allergies No Known Allergies Allergy (Verified 01/04/25 17:15) Medication List - Last Reconciled 01/04/25 by Osiel Ward MD No Known Home Meds Tobacco use date assessed: 01/04/25 Dental Screening Dental Screen Date: 04/06/24 [facility] Medical History (Updated 01/04/25 @ 18:27 by Osiel Ward MD) LFT elevation Screening for colon cancer Family history of colorectal cancer Surgical History H/O colonoscopy Family History Father Colon cancer Social History Housing: House Alcohol intake: current Alcohol intake frequency: a few times a month Comment: twice a week 2-3 truly Patient Tobacco Use Status: Never used Tobacco Tobacco use type: Cigarette Years Smoked: marijuana e-Cigarette/Vaping Use: Never Used Second Hand Smoke Exposure: No service: No Current occupational status: employed Current occupation: [employer] Current occupational exposures/hazards: No Cognitive needs: No Hearing needs: No Vision needs: Yes (reading glasses) Questionnaire PHQ-9 Over the last 2 weeks, how often have you been bothered by any of the following problems? 1. Little interest or pleasure in doing things: not at all 2. Feeling down, depressed, or hopeless: not at all 3. Trouble falling or staying asleep, or sleeping too much: several days 4. Feeling tired or having little energy: several days 5. Poor appetite or overeating: not at all 6. Feeling bad about yourself - or that you are a failure or have let yourself or your family down: not at all 7. Trouble concentrating on things, such as reading the newspaper or watching television: not at all 8. Moving or speaking so slowly that other people could have noticed. Or the opposite - being so fidgety or restless that you have been moving around a lot more than usual: not at all 9. Thoughts that you would be better off or of hurting yourself in some way: not at all Total score: 2 Depression Screening Interpretation: Positive Depression Screening Done: Yes Source: Developed by Drs. Guy Davila, Sonya Ruano, Alvin Srivastava and colleagues, with an educational sabrina from [employer]. Thrive Questionnaire Date Thrive assessed: 01/02/25 I am a: Patient What is your living situation today?: I have a steady place to live Within the past 12 months, did the food you bought not last and you didn't have the money to get more?: Never true Within the past 12 months, did you worry whether your food would run out before you got money to buy more?: Never true Do you have trouble paying for medicines?: No Do you have trouble getting transportation to medical appointments?: No Do you have trouble paying your heating and electricity bill?: No Do you have trouble taking care of your child, family member or friend?: No Do you have trouble with day-to-day activities such as bathing, preparing meals, shopping, managing finances, etc.?: No Are you currently unemployed and looking for a job?: No Are you interested in more education?: No Please select the resources that you would like help with: None Currently or been in a relationship where the following occur: No concerns reported THRIVE Score: 0 AUDIT C Alcohol Use Questionnaire (AUDIT-C) 1. How often do you have a drink containing alcohol?: 2-3 times a week 2. How many drinks containing alcohol do you have on a typical day when you are drinking?: 3 or 4 3. How often do you have six or more drinks on one occasion?: Weekly Total Score: 7 EFRAIN-7 AMB Questionnaire EFRAIN-7 Date EFRAIN - 7 assessed: 04/06/24 Feeling nervous, anxious, or on edge: 0 = Not at all Not being able to stop or control worryin = Not at all Worrying too much about different things: 0 = Not at all Trouble relaxin = Not at all Being so restless that it is hard to sit still: 0 = Not at all Becoming easily annoyed or irritable: 1 = Several days Feeling afraid as if something awful might happen: 0 = Not at all Total EFRAIN-7 score (0-4 normal; 5-9 mild; 10-14 moderate; 15-21 severe): 1 Source: Developed by Drs. Guy Davila, Sonya Ruano, Alvin Srivastava and colleagues, with an educational sabrina from [employer]. Review of Systems Const Denies poor appetite and Denies weakness Eyes Denies no additional complaints ENT Reports Normal hearing present, Denies dizziness, Denies nasal congestion, Denies tinnitus and Denies sore throat Card Denies chest pain, Denies syncope, Denies rapid heart rate and Denies dyspnea Resp Denies cough and Denies dyspnea GI Denies change in stool character, Reports constipation, Denies diarrhea, Denies nausea and Denies vomiting Denies dysuria and Denies urinary frequency Neuro Reports Normal hearing present, Denies confusion, Denies dizziness, Denies syncope and Denies weakness Psych Denies confusion Physical exam (Primary Care) Vital Signs: Last Vital Signs Pulse 69 01/04/25 17:15 BP 132/70 01/04/25 17:15 Pulse Ox 97 01/04/25 17:15 Oxygen Delivery Method Room Air 01/04/25 17:15 BMI result Body Mass Index 27.9 Tobacco/Smoking Status: Tobacco use Status Tobacco use date assessed 01/04/25 01/04/25 17:15 Patient Tobacco Use Status Never used Tobacco 01/04/25 17:15 Tobacco use type Cigarette 01/04/25 17:15 e-Cigarette/Vaping Use Never Used 01/04/25 17:15 PHQ-9: PHQ-9 Score PHQ-9: Total score 2 01/04/25 17:15 Depression Screening Interpretation: Positive Thrive Assessment: Date of Thrive Assessment Date Thrive assessed 01/02/25 01/04/25 17:15 Currently or been in a relationship where the following occur: No concerns reported Const General: No confusion Orientation/consciousness: No confusion HENMT Head: Yes normocephalic Ears: external ears normal and TM's normal bilaterally Face and sinus: Yes normal facial exam Mouth: moist mucous membranes Throat: Yes tonsils normal Eyes Conjunctivae: conjunctivae normal Pupils: Equal, round and reactive pupils present and Pupil accommodation reflex normal Direct Ophthalmoscopy: normal light reflex Neck Neck: No lymphadenopathy Thyroid: Thyroid normal Chest Chest palpation & inspection: normal inspection of the chest Resp Effort & Inspection: normal respiratory effort and no audible wheezes Auscultation: clear to auscultation bilaterally, no crackles, no wheezes and lung sounds not diminished Cardio Rate: regular rate Rhythm: regular rhythm Peripheral pulses: radial pulses present and dorsalis pedis present GI Other: guaiac negative, prostate mild enlarged Palpation (GI): no masses Auscultation: normal bowel sounds and normoactive bowel sounds Male General Exam: Yes normal external exam Skin General skin exam: no rashes or lesions noted Rashes: no rashes Neuro General: No confusion Cranial nerves: Yes Equal, round and reactive pupils present and Yes Normal hearing present Cognition (Neuro): normal cognition Gait exam (Neuro): Normal gait present Motor exam (neuro): 5/5 motor strength present throughout Deep tendon reflexes (DTR's): Right brachioradialis reflex intensity grade: 2+, Left brachioradialis reflex intensity grade: 2+, Right patellar reflex intensity grade: 2+ and Left patellar reflex intensity grade: 2+ Extrem General: No edema Coding Level of Care Code Est Pt Prev Care 40-64y(37924) Diagnoses Annual physical exam Z00.00 Fatty liver K76.0 Overweight (BMI 25.0-29.9) E66.3 GERD (gastroesophageal reflux disease) K21.9 Insomnia G47.00 Assessment & Plan Assessment & Plan (1) Annual physical exam: Code(s): Z00.00 - Encounter for general adult medical examination without abnormal findings Category: Medical Plan: Patient is advised to eat healthy, keep well hydrated, keep active and have adequate sleep. (2) Fatty liver: Code(s): K76.0 - Fatty (change of) liver, not elsewhere classified Category: Medical Plan: Low-fat diet and exercise (3) Overweight (BMI 25.0-29.9): Code(s): E66.3 - Overweight Category: Medical Plan: Diet and exercise (4) GERD (gastroesophageal reflux disease): Code(s): K21.9 - Gastro-esophageal reflux disease without esophagitis Category: Medical (5) Insomnia: Code(s): G47.00 - Insomnia, unspecified Category: Medical Plan History of Present Illness The patient is a 54-year-old overweight male presenting for a physical exam. He has a history of hepatic steatosis, which was confirmed on an abdominal ultrasound in 2023. His last blood work in May showed a normal blood count, electrolytes, renal function, and glucose. His last cholesterol panel in 2022 showed an LDL of 88 mg/dL and triglycerides of 148 mg/dL, and his thyroid function was normal. The patient reports no allergies and is not taking any prescription medications, [id number] medications, or supplements. He denies any new medical diagnoses or surgeries since his last visit. His last colonoscopy was in March 2023, and he is scheduled for surveillance every 5 years due to a family history of colon cancer in his father. There is no other family history of cancer or heart attacks. The patient reports intermittent heartburn, which he states is not even a weekly occurrence, and is typically triggered by alcohol such as whiskey or wine. He has a bowel movement every morning without constipation. He reports waking up once per night to urinate. 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 He drinks alcohol on weekends, consuming two to three drinks on Saturday and Saturday. He denies smoking cigarettes or marijuana but has used edibles in the past socially, though it is not a routine. Health Maintenance - Colonoscopy: Last performed in March 2023; up to date with a 5-year follow-up interval. - Labs: Fasting bloodwork, including a prostate specific antigen (PSA) level, was ordered. - Diet and Exercise: Counseling provided on maintaining a low-fat diet and staying active for management of fatty liver. - Eye exam: Recommended to have his vision checked. - Skin exam: Advised to self-monitor his multiple moles for any new or concerning changes. - Vaccinations: Discussed tetanus (due every 10 years), annual flu vaccine (recommended in November), and the two-part shingles vaccine series. 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 - Alcohol Use: Reports drinking on weekends (Saturday and Saturday), consuming two or three seltzer drinks (Truly) per session. - Tobacco Use: Denies ever smoking cigarettes. - Substance Use: Denies current use of marijuana, including edibles, but has used edibles socially in the past. - Diet: Is trying to eat healthy. Review of Systems - General: Denies fever. - Constitutional: Reports difficulty falling asleep and staying asleep, which he relates to his frequent travel. - HEENT: Reports good hearing. Denies problems with swallowing. - Cardiovascular: Denies chest heaviness or syncope. - Respiratory: Denies shortness of breath at rest or with exertion. Denies cough. - Gastrointestinal: Reports occasional heartburn after drinking alcohol. Reports daily bowel movements without constipation. Denies nausea or vomiting. - Genitourinary: Reports waking one time per night to urinate. - Neurological: Denies feeling dizzy. Physical Exam General: Cooperative, healthy appearing, comfortable, no acute distress and well developed Orientation: Patient oriented x3 Limitations: No limitations Head: Normal to inspection Ears: Hearing grossly normal bilaterally, right ear with 30% ear wax Nose: Normal external nose present Face and sinus: Normal facial exam Eyes: Appearance normal, both eyes and all related structures Neck: Normal visual inspection and Yes full ROM Respiratory: Normal respiratory effort and able to speak in complete sentences. Clear to auscultation bilaterally Cardiovascular: Regular rate and rhythm. Normal S1 and S2 GI: Normal to inspection. Soft to palpation and nontender. Patient reports occasional heartburn, especially after consuming alcohol or spicy foods. Skin: No rashes or lesions noted. Multiple moles present; patient advised to monitor for changes. Neuro: Patient oriented x3 Extremities: Normal to inspection Results - Previous Labs (May): Normal blood count, electrolytes, renal function, and sugar. - Previous Labs (2022): LDL was 88 mg/dL and triglycerides were 148 mg/dL. Thyroid was normal. - Previous Imaging (2023): Abdominal ultrasound showed hepatic steatosis. Plan Patient was informed and verbally consented to the use of an ambient scribe for clinic note documentation during this visit. 1. Annual Physical Exam The patient presents for a routine wellness visit. Fasting bloodwork, including CBC, CMP, lipid panel, and a PSA level, has been ordered. Discussed age-appropriate health screenings and vaccinations, including the need for a routine eye exam, tetanus, shingles, and flu immunizations. The patient's colonoscopy is up to date. 2. Hepatic Steatosis The patient has a known history of fatty liver, confirmed on a 2023 ultrasound. Management consists of lifestyle modifications, including a low-fat diet and regular physical activity, which were reinforced. Liver function tests will be monitored as part of the ordered annual labs. 3. Insomnia The patient reports intermittent difficulty initiating and maintaining sleep, which he associates with his frequent travel schedule. He expressed concern about the addictive potential of sleep aids. We discussed using [id number] Benadryl for occasional use and non-pharmacologic strategies such as nighttime exercise. The patient declined a prescription for Ambien at this time, preferring to try other methods first. He will follow up if his sleep does not improve. 4. Gastroesophageal Reflux Disease The patient experiences infrequent heartburn, primarily triggered by alcohol. He was advised on continued avoidance of triggers and that [id number] antacids like Tums are appropriate for his occasional symptoms. It was explained that if symptoms become weekly, further evaluation would be necessary due to risks of esophageal damage. 5. Hemorrhoids And Benign Prostatic Hyperplasia The physical exam revealed external hemorrhoids and a mildly enlarged prostate. The patient reports nocturia once per night, which can be associated with BPH. He was counseled on increasing dietary fiber and water intake to soften stools and avoid straining, which can exacerbate hemorrhoids. The guaiac test was negative. His prostate will be further evaluated with the ordered PSA blood test. Discussion Notes I discussed the findings of the physical exam with the patient, including the benign nature of his current issues such as infrequent heartburn, hemorrhoids, and a mildly enlarged prostate. We reviewed his history of hepatic steatosis, and I reinforced the importance of a low-fat diet and active lifestyle for management. Regarding his insomnia, we discussed the pros and cons of medication; he expressed a desire to avoid dependency and will first try lifestyle changes and occasional [id number] options like Benadryl before considering a prescription like Ambien. I advised him on managing his hemorrhoids by increasing dietary fiber and water to avoid straining. We discussed his vaccination status, and I particularly recommended the shingles vaccine, given his mother had a severe case. I informed him that fasting labs have been ordered, and I will contact him regarding any significant abnormalities. Patient Instructions - Please go to the lab for fasting blood work. This means no food for 8 hours before the test, but sips of water are okay. - Continue to eat a healthy, low-fat diet and stay active to manage your fatty liver. - For occasional insomnia, you can try [id number] Benadryl. Do not use it regularly. Please let me know if your sleep problems continue. - To help with hemorrhoids, eat more fiber from vegetables and drink plenty of water. Avoid straining when you have a bowel movement. - You should get a tetanus shot if it has been more than 10 years. - Consider getting the two-part shingles vaccine, which is recommended for your age. - Schedule an eye exam with an eye doctor. - Keep an eye on the moles on your body and report any changes in size, shape, or color. - I will contact you if there are any major problems with your blood work results.
[2025-01-04 17:15] VITALS: BP 132/70; PULSE 69; O2SAT 97; BMI 27.9
== END 2025-01-04 18:43 | disposition home or self-care (01) ==
LOC: HO.HMCH 17:14
PROVIDERS: Visit Provider Internal Medicine
DX: Z00.00 Encounter for general adult medical examination without abnormal findings (principal); K76.0 Fatty (change of) liver, not elsewhere classified; E66.3 Overweight; K21.9 Gastro-esophageal reflux disease without esophagitis; G47.00 Insomnia, unspecified